=== PATIENT | female | born 1975 | race Caucasian/White ===

== ENCOUNTER 2018-06-18 14:34 | Emergency (ER) | payer OTHER ==
[2018-06-18] MEDS ORDERED: Ketorolac 30 MG/ML SDV IM ONE (15:53)
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
--- NOTE | 2018-06-21 09:28 | CR ---
Right hand and wrist. Findings: There is a comminuted fracture of the distal portion of proximal phalanx fifth finger. There is invol vement of the articular surface. There is mild displacement. The remaining portions of the hand are i ntact. The wrist demonstrates normal alignment without evidence for fracture. Impression: 1. Comminuted fracture distal portion proximal phalanx fifth finger.
== END 2018-06-18 17:25 | disposition home or self-care (01) ==
LOC: JP.ED 14:34 → EDBD 14:34 → JP.ED 17:25
DX: S62.636A Displaced fracture of distal phalanx of right little finger, initial encounter for closed fracture (principal); Z88.5 Allergy status to narcotic agent; Z88.0 Allergy status to penicillin; Z79.899 Other long term (current) drug therapy; V19.88XA Pedal cyclist (driver) (passenger) injured in other specified transport accidents, initial encounter
CPT/HCPCS: 29125; 73110; 73130; 96372; 99284; J1885